=== PATIENT | male | born 1940 | race Caucasian/White ===

== ENCOUNTER 2021-08-05 08:23 | Outpatient (CLI) | payer MEDICARE ==
[~2021-08-05] VITALS: Ht 175.3 cm; Wt 84.1 kg
[2021-08-05] VITALS (18 sets, daily range): BP systolic 92–130; BP diastolic 44–73; PULSE 63–118; TEMP 98
[~2021-08-05 08:23] MED LIST: ASPIRIN 81M81 MG/TA2 PO; BROVANA15 MCG/2 M IH; COREG 6.256.25 MG/TA PO; CRESTOR40 MG PO; PLAVIX 75MG TAB75 MG PO; PRILOSEC 20MG20 MG PO; PRINIVIL20 MG PO; PROAIR DIGIHAL90 MCG IH; VITAMIN D31000 IU PO; YUPELRI175 MCG/3 IH; ZYLOPRIM 300MG300 MG PO
--- NOTE | 2021-08-05 13:36 | NUR ---
Discharge instructions given to pt.Pt verbalizes understanding.INT removed,catheter tip intact.
--- NOTE | 2021-08-05 13:59 | NUR ---
Pt escorted out via wheelchair by this nurse.
== END 2021-08-05 14:34 ==
LOC: COL.RAD 08:23
DX: R91.8 Other nonspecific abnormal finding of lung field (principal)
CPT/HCPCS: J3010